=== PATIENT | male | born 1955 | race Hispanic/Latino ===

== ENCOUNTER 2024-08-18 19:02 | Emergency (ER) | payer MEDICARE ==
[~2024-08-18] VITALS: Ht 165.1 cm; Wt 65.8 kg
--- NOTE | 2024-08-18 19:17 | ERN ---
General Chief Complaint: Chest Pain Stated Complaint: SOB X 2 MONTHS, CP X 2 HOURS Time Seen by MD: 19:05 Source: patient History of Present Illness Initial Comments 68-year-old male with a history of COPD, smoking cigarettes and shortness of breath for two months. He was sitting down just prior to coming to the hospital where he experienced crushing chest pain. He points a little subxiphoid rather than substernal. EMS was called he was given aspirin and nitroglycerin before coming to the hospital. He still has his pain. It seems to be worse when he takes a deep breath. Allergies: Coded Allergies: No Known Drug Allergies (Unverified Allergy, Unknown, 11/01/13) Past Medical History Past Medical History: COPD, Hypertension Constitutional: (-) chills, (-) diaphoresis, (-) fever, (-) malaise, (-) weakness, (-) other documentation EENTM: (-) eye pain, (-) blurred vision, (-) tearing, (-) double vision, (-) ear pain, (-) ear discharge, (-) nose pain, (-) nose congestion, (-) throat pain, (-) Throat swelling, (-) mouth pain, (-) tooth pain, (-) mouth swelling, (-) other documentation Respiratory: (-) cough, (-) orthopnea, (-) short of breath, (-) stridor, (-) wheezing, (-) other documentation Cardiovascular: (+) chest pain, (+) edema, (+) palpitations, (+) syncope, (+) dyspnea on exertion, (+) other documentation Gastrointestinal/Abdominal: (-) nausea, (-) vomiting, (-) diarrhea, (-) abdominal pain, (-) abdominal distention, (-) constipation, (-) rectal bleeding, (-) dark stool/melena, (-) other documentation Neuro: (-) altered mental status, (-) headache, (-) syncope, (-) paralysis, (-) numbness, (-) seizure, (-) pre-existing deficit, (-) tremors, (-) weakness, (-) dizziness, (-) slurred speech, (-) vertigo, (-) other documentation Physical Exam General Appearance: (+) mild distress Orientation: (+) alert, (+) oriented x 3 Head/Face Trauma: No Eye: bilateral eye normal inspection, bilateral eye PERRL, bilateral eye EOMI Ear, Nose, Throat: (+) hearing grossly normal, (+) normal ENT inspection, (+) moist mucous membraine Neck: (+) normal inspection, (+) supple, (+) full range of motion, (+) no JVD Respiratory: (+) chest non-tender, (+) lungs clear, (+) well ventilated Heart: (+) regular, (+) no gallop Vascular: (+) no edema, (+) normal peripheral pulse Gastrointestinal: (+) soft, (+) non-tender, (+) bowel sound present Back: (+) normal inspection, (+) no CVA tenderness Extremities: (+) normal range of motion, (+) non-tender Neurologic/Psychiatric: (+) normal speech, (+) no motor defecits Results Laboratory and Microbiology Lab and Micro Result Laboratory Tests Test 08/18/24 19:16 08/18/24 19:21 White Blood Count 7.6 K/uL (4.8-10.8) Red Blood Count 3.70 MIL/uL (4.50-6.20) L Hemoglobin 12.8 g/dL (14.0-18.0) L Hematocrit 37.3 % (42-54) L Mean Corpuscular Volume 100.8 fL (79-99) H Mean Corpuscular Hemoglobin 34.6 pg (27.0-33.0) H Mean Corpuscular Hemoglobin Concent 34.3 g/dL (32.0-36.0) Red Cell Distribution Width 12.9 % (11.0-15.5) Platelet Count 247 K/uL (130-400) Mean Platelet Volume 9.1 fL (7.5-10.5) Immature Granulocyte % (Auto) 0.3 % (0-1) Neutrophils (%) (Auto) 46.7 % (40.0-77.0) Lymphocytes (%) (Auto) 43.1 % (21.0-51.0) Monocytes (%) (Auto) 5.8 % (3.0-13.0) Eosinophils (%) (Auto) 3.4 % (0.0-8.0) Basophils (%) (Auto) 0.7 % (0.0-5.0) Neutrophils # (Auto) 3.6 K/uL (1.8-7.7) Lymphocytes # (Auto) 3.3 K/uL (1.0-4.8) Monocytes # (Auto) 0.4 K/uL (0.1-1.0) Eosinophils # (Auto) 0.26 K/uL (0.00-0.70) Basophils # (Auto) 0.05 K/uL (0.00-0.20) Absolute Immature Granulocyte (auto 0.02 K/uL (0-1) Nucleated Red Blood Cells 0.0 % (0.0-0.19) Sodium Level 143 mmol/L (136-145) Potassium Level 3.5 mmol/L (3.5-5.1) Chloride Level 107 mmol/L (101-111) Carbon Dioxide Level 26 mmol/L (21-32) Blood Urea Nitrogen 11 mg/dL (7-18) Creatinine 0.7 mg/dL (0.5-1.3) Glomerular Filtration Rate Calc 102 mL/min (>90) Random Glucose 85 mg/dL (70-105) Total Calcium 8.6 mg/dL (8.5-10.1) Total Creatine Kinase 136 U/L (21-232) Troponin I High Sensitivity 12 ng/L (4-75) B-Type Natriuretic Peptide 28 pg/mL (0-100) Urine Color COLORLESS (YELLOW) Urine Appearance CLEAR (CLEAR) Urine pH 6.5 (5.0-8.0) Urine Specific [place] 1.005 (1.001-1.031) Urine Protein NEGATIVE mg/dL (NEGATIVE) Urine Glucose (UA) NEGATIVE mg/dL (NEGATIVE) Urine Ketones NEGATIVE mg/dL (NEGATIVE) Urine Occult Blood NEGATIVE (NEGATIVE) Urine Nitrate NEGATIVE (NEGATIVE) Urine Bilirubin NEGATIVE mg/dL (NEGATIVE) Urine Urobilinogen 0.2 mg/dL (0.2-1.0) Urine Leukocyte Esterase NEGATIVE [place]/uL Labs Reviewed?: Yes MDM CT 8-year-old male with COPD hypertension shortness of breath and new onset chest pain. Patient not giving classic signs or symptoms of an acute NM. in fact his 1st EKG shows normal sinus rhythm with no ST-T elevations or depress ions or T-wave inversions. We have ordered the standard chest pain labs. I am concerned about his chronic shortness of breath and his chest pain which she points as going from his stomach up through his esophagus to his mouth. I will give him a GI cocktail. We will already have an chest x-ray ordered and a UA ordered. It is possible the patient is dehydrated I will give him a L of LR. Patient's laboratory studies are all normal. He does have a macrocytic anemia. He does feel better with the fluids and with a GI cocktail. His vital signs show that he is hypertensive. He has not been taking his antih ypertensive medications because he ran out and he is without health insurance at the current time. He does not know the name of the antihypertensive medication that he takes. Currently he is systolic is 154 with a diastolic of 97. Once he has completed the L bolus of LR we will discharge him from the emergency room. ED Course Orders Procedure Category Date Status Time Vital Signs Per CPOE 08/18/24 Transmitted Routine 19:06 B-Type Natriuretic LAB 08/18/24 Complete Peptide 19:06 Chest 1vw RAD 08/18/24 Resulted 19:06 12 Lead Ekg Tracing- EKG 08/18/24 Logged Technical 19:06 Oxygen By Nc/Pulse Ox CPOE 08/18/24 Transmitted 19:06 Maintain Iv CPOE 08/18/24 Transmitted 19:06 Iv Insertion CPOE 08/18/24 Transmitted 19:06 Cardiac Monitoring CPOE 08/18/24 Transmitted 19:06 Pulse Oximetry With CPOE 08/18/24 Transmitted Vs And Prn 19:06 Cbc With Differential LAB 08/18/24 Complete 19:06 Activity: Br W/Brp CPOE 08/18/24 Transmitted With Assist 19:06 Creatine Kinase, Total LAB 08/18/24 Complete 19:06 Troponin I High LAB 08/18/24 Complete Sensitivity 19:06 Urinalysis Profile LAB 08/18/24 Complete 19:06 Basic Metabolic Panel LAB 08/18/24 Complete 19:06 Lactated Ringers PHA 08/18/24 Complete 1000ml (Lactated 19:20 Lidocaine Hcl 2% PHA 08/18/24 Complete Viscous (Lidocaine Hcl 20:00 Mag/Alum/Simeth 30ml PHA 08/18/24 Complete (Maalox Plus 30ml) 20:00 Dicyclomine Hcl PHA 08/18/24 Complete (Bentyl 10mg/5ml 20:00 Current Medications Medications (Trade) Dose Ordered Sig/Rosario Route PRN Reason Start Time Stop Time Status Last Admin Dose Admin Al Hydroxide/Mg Hydroxide (MAALox PLUS 30ML) 30 ml ONCE ONCE PO 08/18/24 20:00 08/18/24 20:01 DC 08/18/24 20:14 Dicyclomine HCl (Bentyl 10mg/5ml Syrup) 10 mg ONCE ONCE PO 08/18/24 20:00 08/18/24 20:01 DC 08/18/24 20:14 Lactated Ringer's (Lactated Ringers 1000ml) 1,000 ml BOLUS STAT IV 08/18/24 19:20 08/18/24 19:23 DC 08/18/24 19:40 Lidocaine HCl (Lidocaine HCl 2% Viscous) 10 ml ONCE ONCE PO 08/18/24 20:00 08/18/24 20:01 DC 08/18/24 20:14 Vital Signs Date Time Temp Pulse Resp B/P (MAP) Pulse Ox O2 Delivery O2 Flow Rate FiO2 08/18/24 19:24 97.9 68 18 161/83 98 Room Air* 0 21 08/18/24 19:07 97.3 79 16 143/66 96 Nasal Cannula 3.0 DX & DISP Disposition: Discharge Departure Impression: Primary Impression: HYPERTENSION NOS Condition: Stable Additional Instructions: Please return if your high blood pressure gets worse to the point that you start experiencing further episodes of chest pain or headaches. Referrals: SELF,REFERRAL (PCP) LUIS ENRIQUE JARAMILLO MD August 18, 2024 19:17
[2024-08-18 19:22] LABS: BASOPHILS # (AUTO) 0.05 K/uL (0.00-0.20); BASOPHILS % (AUTO) 0.7 % (0.0-5.0); EOSINOPHILS # (AUTO) 0.26 K/uL (0.00-0.70); EOSINOPHILS % (AUTO) 3.4 % (0.0-8.0); HEMATOCRIT 37.3 % (42-54); IMMATURE GRANULOCYTE ABSOLUTE 0.02 K/uL (0-1); LYMPHOCYTES # (AUTO) 3.3 K/uL (1.0-4.8); LYMPHOCYTES % (AUTO) 43.1 % (21.0-51.0); MEAN CORPUSCULAR HEMOGLOBIN 34.6 pg (27.0-33.0); MEAN CORPUSCULAR HGB CONC 34.3 g/dL (32.0-36.0); MEAN CORPUSCULAR VOLUME 100.8 fL (79-99); MONOCYTES # (AUTO) 0.4 K/uL (0.1-1.0); MONOCYTES % (AUTO) 5.8 % (3.0-13.0); NEUTROPHILS # (AUTO) 3.6 K/uL (1.8-7.7); NEUTROPHILS % (AUTO) 46.7 % (40.0-77.0); PLATELET COUNT (AUTO) 247 K/uL (130-400); RED CELL DISTRIBUTION WIDTH 12.9 % (11.0-15.5); WHITE BLOOD COUNT (AUTO) 7.6 K/uL (4.8-10.8)
[2024-08-18 19:31] LABS: CREATININE 0.7 mg/dL (0.5-1.3); POTASSIUM 3.5 mmol/L (3.5-5.1)
--- NOTE | 2024-08-18 19:38 | HMCIMG ---
PORTABLE CHEST RADIOGRAPH INDICATION: CHEST PAIN COMPARISON: 11/01/13 FINDINGS: Heart size is normal. The pulmonary vascularity and ema appear normal. No abnormal pulmonary parenchymal opacity or consolidation identified. No significant pleural effusion noted. No pneumothorax detected. IMPRESSION: No radiographic evidence for any acute cardiopulmonary process.
[2024-08-18] MEDS: LACTATED RINGERS 1000ML IV STA (19:40)
[2024-08-18 19:52] LABS: APPEARANCE,URINE CLEAR (CLEAR); BILIRUBIN,URINE NEGATIVE (NEGATIVE); COLOR,URINE COLORLESS (YELLOW); GLUCOSE, URINE (UA) NEGATIVE (NEGATIVE); KETONES,URINE NEGATIVE (NEGATIVE); LEUKOCYTE ESTERASE ,URINE NEGATIVE Leu/uL (NEGATIVE); NITRATE,URINE NEGATIVE (NEGATIVE); OCCULT BLOOD,URINE NEGATIVE (NEGATIVE); PH,URINE 6.5 (5.0-8.0); PROTEIN,URINE NEGATIVE (NEGATIVE); UROBILINOGEN,URINE 0.2 mg/dL (0.2-1.0)
[2024-08-18 19:55] LABS: ADD UA MICROSCOPIC NO
[2024-08-18 20:07] LABS: B-TYPE NATRIURETIC PEPTIDE 28 pg/mL (0-100)
[2024-08-18] MEDS: DICYCLOMINE HCL 10 MG/5 ML ML PO ONE (20:14)
[2024-08-18] MEDS: MAG/ALUM/SIMETH 30 ML UDCUP PO ONE (20:14)
[2024-08-18] MEDS: LIDOCAINE HCL 2% VISCOUS 15 ML UDCUP PO ONE (20:14)
[2024-08-18 21:27] VITALS: BP 152/86; PULSE 66; RESP 16; TEMP 97.8; O2SAT 98
--- NOTE | 2024-08-19 07:55 | EKG ---
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
== END 2024-08-18 21:28 | disposition home or self-care (01) ==
LOC: EDH 19:02
DX: I10 Essential (primary) hypertension (principal); J44.9 Chronic obstructive pulmonary disease, unspecified; F17.200 Nicotine dependence, unspecified, uncomplicated
CPT/HCPCS: 99285; 71045; 82550; 84484; 80048; 83880; 85025; 81003; 36415; 93005; J7120